=== PATIENT | male | born 1980 | race American Indian/Alaskan Native ===

== ENCOUNTER 2021-07-22 00:02 | Emergency (ER) | payer SELFPAY ==
[2021-07-22] MEDS ORDERED: ASPIRIN 325 MG TAB PO ONE (00:31)
--- NOTE | 2021-07-22 00:38 | Event Note ---
ED Screening Note ED Screening Note: 41-year-old male with substernal chest pressure with history dull and achy in nature reports no palpitations no nausea vomiting This initial assessment/diagnostic orders/clinical plan/treatment(s) is/are subject to change based on patients health status, clinical progression and re- assessment by fellow clinical providers in the ED. Further treatment and workup at subsequent clinical providers discretion. Patient/guardian urged not to elope from the ED as their condition may be serious if not clinically assessed and managed. Initial orders include: Labs, EKG, x-ray
[2021-07-22] MEDS ORDERED: HYDROcodone/ACETAMINOPHEN 5-325 MG TAB PO ONE (00:44)
--- NOTE | 2021-07-22 00:48 | Emergency Department Report ---
ED Chest Pain HPI - General Chief Complaint: Chest Pain Stated Complaint: CHEST/ARM/HAND PAIN Time Seen by Provider: 07/22/21 00:43 Source: patient, family Mode of arrival: Ambulatory Limitations: No Limitations - History of Present Illness Initial Comments: 41-year-old -[place] male presents to the emergency department with 2 complaints. First, the patient has been having left hand pain over the past 2 to 3 days. He denies any known trauma or injury, but says that his significant other told him that he was having something along the lines of "sleep fighting." He has pins and needle sensation going down his left arm and into the fourth and fifth fingers of that left hand. Patient also appears to have some mild swelling to the dorsum of his left hand. Secondly, the patient says that he has been having some midsternal to left-sided chest pain, with associated shortness of breath, that has been going on since yesterday. He denies any fever, cough, lower extremity swelling, back pain, nausea, vomiting, diaphoresis. He is a tobacco smoker but denies any illicit drug use. He has not taken anything for his symptoms prior to presentation today. He is left-hand dominant. - Related Data Previous Rx's Medication Instructions Recorded Last Taken Type HYDROcodone/APAP 5-325 [[place]lake 1 each PO Q6HR PRN #12 tablet 07/22/21 Unknown Rx 5/325] Allergies Allergy/AdvReac Type Severity Reaction Status Date / Time No Known Allergies Allergy Unverified 07/22/21 00:31 Heart Score - HEART Score History: Slightly suspicious EKG: Non-specific Age: < 45 Risk factors: 1-2 risk factors Troponin: < normal limit HEART Score: 2 - EKG Read Time Time EKG Completed: 02:00 EKG Read Time: 02:05 - Critical Actions Critical Actions: 0-3 pts:0.9-1.7%risk of adverse cardiac event.Candidate for discharge ED Review of Systems ROS: Stated complaint: CHEST/ARM/HAND PAIN Other details as noted in HPI Comment: All other systems reviewed and negative Constitutional: denies: chills, fever Eyes: denies: eye pain, vision change ENT: denies: ear pain, throat pain Respiratory: shortness of breath. denies: cough Cardiovascular: chest pain. denies: palpitations Gastrointestinal: denies: abdominal pain, vomiting Genitourinary: denies: dysuria, discharge Musculoskeletal: joint swelling, arthralgia Skin: denies: rash, lesions Neurological: paresthesias. denies: headache ED Past Medical Hx - Past Medical History Previous Medical History?: No - Surgical History Past Surgical History?: No - Social History Smoking Status: Current Every Day Smoker Substance Use Type: None - Medications Home Medications: Home Medications Medication Instructions Recorded Confirmed Last Taken Type HYDROcodone/APAP 5-325 [[place] 1 each PO Q6HR PRN #12 tablet 07/22/21 Unknown Rx 5/325] ED Physical Exam - General Limitations: No Limitations - Other Other exam information: GENERAL: The patient is well-developed well-nourished. HENT: Normocephalic. Atraumatic. Patient has moist mucous membranes. EYES: Extraocular motions are intact. NECK: Supple. Trachea is midline. CHEST/LUNGS: Clear to auscultation. There is no respiratory distress noted. HEART/CARDIOVASCULAR: Regular. There is no tachycardia. There is no murmur. ABDOMEN: Abdomen is soft, nontender. Patient has normal bowel sounds. There is no abdominal distention. SKIN: Skin is warm and dry. There is some mild nonpitting swelling to the ulnar side of the left dorsal hand. NEURO: The patient is awake, alert, and oriented. The patient is cooperative. The patient has no focal neurologic deficits. Normal speech. MUSCULOSKELETAL: There is tenderness to palpation to the ulnar side of the left hand. Radial pulse +2/4 and capillary refill less than 2 seconds to the affected left upper extremity. ED Course Vital Signs 07/22/21 00:21 Temperature 98.8 F Pulse Rate 87 Respiratory 18 Rate Blood Pressure 118/81 O2 Sat by Pulse 98 Oximetry ORLIN score - Orlin Score Age > 65: (0) No Aspirin use within the Past 7 Days: (0) No 3 or more CAD Risk Factors: (0) No 2 or more Angina events in past 24 hrs: (1) Yes Known CAD with more than 50% Stenosis: (0) No Elevated Cardiac Markers: (0) No ST Deviation Greater than 0.5mm: (0) No ORLIN Score: 1 ED Medical Decision Making - Lab Data Result diagrams: 07/22/21 00:43 07/22/21 00:43 - EKG Data -: EKG Interpreted by Me EKG shows normal: sinus rhythm, axis (Left axis deviation), intervals, QRS complexes (Incomplete right bundle branch block), ST-T waves (Some flattening of the T waves or T wave inversions laterally) Rate: normal - EKG Data When compared to previous EKG there are: previous EKG unavailable Interpretation: other (Sinus rhythm at 86 bpm, left axis deviation, incomplete right bundle branch block, flattening of T waves and T wave inversions laterally. no ST elevation MT.) - Radiology Data Radiology results: image reviewed interpreted by me: X-ray of the left hand shows a comminuted and slightly angulated distal fifth metacarpal fracture. Chest x-ray does not show any acute process. There are no pleural effusions, obvious pneumonia and there is no pneumothorax. No widened mediastinum. - Medical Decision Making Regarding the patient's hand pain, there is tenderness to palpation and nonpitting swelling to the ulnar side of the dorsal left hand. He is neurovascularly intact. Patient denies any known trauma or injury, but was told by his significant other that he was agitated in his sleep and may have been flailing his arms. X-ray shows a comminuted and slightly angulated fifth metacarpal fracture. We do not have appropriate OCL material to form a ulnar gutter splint, which is what would be ideal. The patient was placed in a prefabricated volar wrist splint and remains neurovascular intact after placement. He has been given outpatient referrals for orthopedist. Heart and lung sounds are normal to auscultation. The patient does not appear in any respiratory or acute distress. EKG does not have any morphology consistent with ST elevation myocardial infarction. Chest x-ray does not show any pneumonia, pleural effusions, pneumothorax, widened mediastinum, or any other acute process. Labs have been mostly unremarkable including CBC, metabolic panel, negative troponins x2, negative D-dimer. He is low on the heart and ORLIN score. For all these reasons the patient appears safe for discharge home. His contact information has been sent over to the [facility], and someone from their office should be contacting him shortly for close outpatient follow-up as part of our hospitals low risk chest pain protocol. He will return to the emergency department with any worsening of his symptoms or with any acute distress. Critical Care Time: No Critical care attestation.: If time is entered above; I have spent that time in minutes in the direct care of this critically ill patient, excluding procedure time. ED Disposition Clinical Impression: Fracture of fifth metacarpal bone of left hand Qualifiers: Encounter type: initial encounter Fracture type: closed Metacarpal location: unspecified portion of metacarpal Fracture alignment: displaced Qualified Code(s): S62.307A - Unspecified fracture of fifth metacarpal bone, left hand, initial encounter for closed fracture Chest pain Qualifiers: Chest pain type: unspecified Qualified Code(s): R07.9 - Chest pain, unspecified Disposition: 01 HOME / SELF CARE / HOMELESS Is pt being admited?: No Condition: Stable Instructions: Boxer's Fracture, Nonspecific Chest Pain, Adult, Cast or Splint Care, Adult Additional Instructions: Please follow-up with a primary care physician in the next few days. Remain in the splint until follow-up with your orthopedist. I have given you a referral for 2 different local orthopedic groups, Dr. Domínguez and [facility]. I have sent your contact information over to the [facility], and someone from their office should be contacting you shortly for close outpatient follow-up. Just in case, I am giving you a referral for one of their electrotyper, Dr. Rueda. You have been prescribed a medication that is sedating and therefore should not be taken prior to driving, working, and responsible for children and in no way should be mixed with alcohol of any quantity. Return to the emergency department with any worsening of your symptoms, new or concerning symptoms not addressed during this current emergency department visit, or with any acute distress. Prescriptions: HYDROcodone/APAP 5-325 [[place] 5/325] 1 each PO Q6HR PRN #12 tablet PRN Reason: Pain Referrals: PRIMARY MD KD [Primary Care Provider] - 3-5 Days MARCO RUEDA MD [Staff Physician] - 3-5 Days JAYCE DOMÍNGUEZ MD [Staff Physician] - 3-5 Days [facility] [Provider Group] - 3-5 Days Time of Disposition: 04:33
[2021-07-22 01:31] LABS: BUN/Creatinine Ratio 10
[2021-07-22 01:35] LABS: Alanine Aminotransferase 21 units/L (7-56); Albumin 4.4 g/dL (3.9-5); Blood Urea Nitrogen 10 mg/dL (9-20); Calcium 9.6 mg/dL (8.4-10.2); Hemolysis Index 6
[2021-07-22 01:38] LABS: Basophils % (Auto) 0.5 % (0.0-1.8); Eosinophils # (Auto) 0.4 K/mm3 (0.0-0.4); Eosinophils % (Auto) 5.8 % (0.0-4.3); Hematocrit 39.8 % (35.5-45.6); Hemoglobin 13.4 gm/dl (11.8-15.2); Lymphocytes # (Auto) 2.4 K/mm3 (1.2-5.4); Lymphocytes % (Auto) 35.7 % (13.4-35.0); Mean Corpuscular HGB Conc 34 % (32-34); Mean Corpuscular Volume 88 fl (84-94); Monocytes # (Auto) 0.6 K/mm3 (0.0-0.8); Platelet Count 362 K/mm3 (140-440); Red Blood Count 4.52 M/mm3 (3.65-5.03); Red Cell Distribution Width 13.4 % (13.2-15.2)
--- NOTE | 2021-07-22 01:50 | XRay Report ---
XR chest routine 2V INDICATION / CLINICAL INFORMATION: Chest pain. COMPARISON: None available. FINDINGS: SUPPORT DEVICES: None. HEART /PULMONARY VASCULATURE: No significant abnormality. LUNGS / PLEURA: No significant pulmonary or pleural abnormality. No pneumothorax. ADDITIONAL FINDINGS: No significant additional findings. IMPRESSION: 1. No acute findings. Signer Name: Glynn Anderson MD Signed: 07/22/2021 1:45 AM Workstation Name: [id number]
--- NOTE | 2021-07-22 01:50 | XRay Report ---
Left hand radiograph, 3 views HISTORY: Pain and swelling COMPARISON: None FINDINGS: There is an acute comminuted fracture of the distal left fifth metacarpal shaft/neck with a pex dorsal angulation and minimal radial displacement of the distal fracture fragment. There is overl agustin soft tissue swelling. No additional fracture or joint malalignment. IMPRESSION: Acute comminuted and mildly angulated fracture of the distal left fifth metacarpal shaft/ neck. Signer Name: Glynn Anderson MD Signed: 07/22/2021 1:45 AM Workstation Name: [id number]
[2021-07-22 07:34] VITALS: BP 126/78
--- NOTE | 2021-07-22 13:15 | Electrocardiograph Report ---
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
== END 2021-07-22 04:30 | disposition home or self-care (01) ==
LOC: ED 00:02
DX: S62.397A Other fracture of fifth metacarpal bone, left hand, initial encounter for closed fracture (principal); R07.89 Other chest pain; F17.200 Nicotine dependence, unspecified, uncomplicated; Z79.899 Other long term (current) drug therapy; X58.XXXA Exposure to other specified factors, initial encounter; Y93.89 Activity, other specified; Y92.89 Other specified places as the place of occurrence of the external cause; Y99.8 Other external cause status
CPT/HCPCS: 36415; 71046; 80053; 84484; 85025; 85379; 93005; 99284